=== PATIENT | female | born 1965 | race Caucasian/White ===

== ENCOUNTER 2018-05-27 21:14 | Emergency (ER) | payer OTHER ==
--- OUTSIDE RECORDS SUMMARY | 2018-05-27 21:18 | XMS REPORT | Continuity of Care Document ---
:1965 External Reference #:[id number] Author Name Chelsey Spencer Care Team Providers Name Role Phone Genesis Little RPA-C Care Team Information Die Engraver Unavailable Genesis Little RPA-C Primary Care Physician Unavailable Payers Type Date Identification Numbers Payment Provider Subscriber Policy Number: [id number] [facility] Eunice Godinez PayID: [id number] [address] [place] [address] Advance Directives Description No Information Available Problems Description No Information Family History Description No Information Available Social History Type Date Description Comments Sex Unknown Smoke-Free Home is smoke-free Pets 2 cats Recreational Drug Use Regularly uses herbal supplements Allergies, Adverse Reactions, Alerts Description No Known Drug Allergies Medications Medication Date Status Form Strength Qnty SIG Indications Ordering Provider Levocetirizine 00/00/ Active Tablets 5mg take 1 Unknown Dihydrochloride 0000 tablet by mouth once daily if needed for allergies Montelukast // Active Tablets 10mg take 1 Unknown Sodium 0000 tablet by mouth once daily Calcium 500+D / Active Tablets 500-400mg Unknown High Potency 0000 -Unit Biotin / Active Tablets 5000mcg Unknown 0000 Sub Vitamin D / Active Capsules [id number] Unknown (Ergocalciferol) 0000 Valtrex / Active Tablets 500mg 1 twice a Unknown 0000 day Lisinopril / Active Tablets 10mg Unknown 0000 Immunizations Description No Information Available Vital Signs Date Vital Result Comment 05/17/2018 9:42am BP Systolic 106 mmHg BP Diastolic 82 mmHg Height 63 inches 5'3" Weight 205.00 lb BMI (Body Mass Index) 36.3 kg/m2 Heart Rate 83 /min Respiratory Rate 16 /min Body Temperature 98.2 F O2 % BldC Oximetry 98 % Results Description No Information Available Procedures Description No Information Available Encounters Description No Information Available Plan of Treatment No Information Available
[2018-05-27 21:36] VITALS: BP 145/100
[2018-05-27] MEDS ORDERED: predniSONE TAB* 20 MG PO ONE (22:06)
[2018-05-27] MEDS ORDERED: Cephalexin CAP* 500 MG PO ONE (22:07)
--- NOTE | 2018-05-27 22:15 | UC ---
Skin Complaint HPI - HPI Summary HPI Summary: 53-year-old woman comes in with chief complaint of swollen left eyelid. This started a couple of hours ago. Right eyelid was also starting to swell. She took Benadryl and the swelling went down the right eyelid. The swelling left eyelids progressed some but still standing on the left eyelid. It is not itchy it is not painful there is no drainage. No change in vision no upper respiratory tract infection symptoms. Over the last several weeks to months patient's been having intermittent episodes of rash is primarily hives or swelling. She has at least one episode of swelling of the lips. Patient is undergoing a workup and evaluation with her primary care doctor for these hives and swelling. Patient is on lisinopril. Patient denies any difficulty breathing or shortness of breath. - History of Current Complaint Chief Complaint: UCEye Time Seen by Provider: 05/27/18 21:35 Stated Complaint: EYE IRRITATION Hx Last Menstrual Period: no period - cervical ablation Pain Intensity: 1 - Allergy/Home Medications Allergies/Adverse Reactions: Allergies Allergy/AdvReac Type Severity Reaction Status Date / Time SEASONAL ENVIRONMENTAL Allergy Unknown Uncoded 05/27/18 21:20 ALLERGIES Reaction Details Home Medications: Home Medications Aspirin/Acetaminophen/Caffeine [Excedrin Extra Strength Caplet] 1 each PO ONCE 05/27/18 [History Confirmed 05/27/18] Loratadine 10 mg PO DAILY 05/27/18 [History Confirmed 05/27/18] diphenhydrAMINE HCl [Benadryl Allergy 25 MG CAP] 50 mg PO ONCE 05/27/18 [ History Confirmed 05/27/18] PMH/Surg Hx/FS Hx/Imm Hx Previously Healthy: Yes Cardiovascular History: Hypertension - Surgical History Surgical History: Yes Surgery Procedure, Year, and Place: 1993 c section - [facility]. 1996 c section with tubal ligation bilateral, [facility]. cervical ablation. BENIGN CYSTS REMOVED FROM BACK - Family History Known Family History: Positive: None - Social History Alcohol Use: None Substance Use Type: Marijuana Substance Use Comment - Amount & Last Used: daily Smoking Status (MU): Never Smoked Tobacco - Immunization History Most Recent Tetanus Shot: [place] Review of Systems All Other Systems Reviewed And Are Negative: Yes Constitutional: Positive: Negative Skin: Positive: Other - SEE HPI Eyes: Positive: Negative ENT: Positive: Negative Respiratory: Positive: Negative Cardiovascular: Positive: Negative Gastrointestinal: Positive: Negative Motor: Positive: Negative Neurovascular: Positive: Negative Musculoskeletal: Positive: Negative Neurological: Positive: Negative Psychological: Positive: Negative Is Patient Immunocompromised?: No Physical Exam Triage Information Reviewed: Yes Appearance: Well-Appearing, No Pain Distress, Well-Nourished Vital Signs: Initial Vital Signs Temp 98.1 F 05/27/18 21:25 Pulse 69 05/27/18 21:25 Resp 18 05/27/18 21:25 BP 145/100 05/27/18 21:25 Pulse Ox 98 05/27/18 21:25 Vital Signs Reviewed: Yes Eye Exam: Normal Eyes: Positive: Conjunctiva Clear, Other: - Left eyelid is swollen. There is no drainage no scleral injection.. Negative: Conjunctiva Inflamed, Discharge ENT: Positive: Pharynx normal, Uvula midline. Negative: Nasal drainage Neck exam: Normal Neck: Positive: Supple Respiratory: Positive: Lungs clear, Normal breath sounds, No respiratory distress Cardiovascular: Positive: RRR Musculoskeletal Exam: Normal Musculoskeletal: Positive: Strength Intact, ROM Intact Neurological Exam: Normal Neurological: Positive: Alert, Muscle Tone Normal Psychological Exam: Normal Psychological: Positive: Normal Response To Family, Age Appropriate Behavior Skin Exam: Normal Course/Dx - Course Course Of Treatment: The swelling of the eyelid appears to be angioedema. The patient had an episode of her life 1 some if she knew had periorbital cellulitis so she was nervous about that and wishes to be on antibiotics for that possibility. I prescribed Keflex for that although I do not believe periorbital cellulitis is the cause of this rash. Also does not appear to be stye there is no drainage. I am sending the patient home with a dose of prednisone to be used just in case the swelling spreads. I also recommended she stop the lisinopril as that can be a cause of angioedema. Follow-up with primary care doctor go to the emergency department if she worsens or has any questions or concerns. - Diagnoses Provider Diagnosis: Angioedema Discharge - Sign-Out/Discharge Documenting (check all that apply): Patient Departure All imaging exams completed and their final reports reviewed: No Studies - Discharge Plan Condition: Stable Disposition: HOME Prescriptions: Cephalexin CAP* [Keflex CAP*] 500 mg PO TID #29 cap predniSONE TAB* [Deltasone 20 MG TAB*] 40 mg PO DAILY PRN #8 tab PRN Reason: Rash Patient Education Materials: Angioedema (ED) Referrals: Mando Russo DO [Primary Care Provider] - Additional Instructions: FOLLOW UP WITH YOUR DOCTOR. STOP TAKING THE LISINOPRIL IT CAN CAUSE ANGIOEDEMA. GO TO THE EMERGENCY DEPARTMENT FOR ANY WORSENING OF YOUR CONDITION; DIFFICULTY SWALLOWING OR BREATHING OR QUESTIONS OR CONCERNS. - Billing Disposition and Condition Condition: STABLE Disposition: Home
[2018-05-30 13:02] LABS: EBV Capsid Ag IgG Ab Positive (Negative); EBV Capsid Ag IgM Ab Negative (Negative); Epstein-Barr Nuclear Antigen Positive (Negative)
--- NOTE | 2018-05-30 16:24 | UC ---
- Progress Note Progress Note: EBV titers from May 27, 2018 comes back positive for IgG and nuclear AG. Negative for IgM. This suggests past infection. Nursing to call patient and inform the patient of the results are consistent with a prior infection of Kacy-Damon. Course/Dx - Diagnoses Provider Diagnoses: Angioedema Discharge - Sign-Out/Discharge Documenting (check all that apply): Patient Departure All imaging exams completed and their final reports reviewed: No Studies - Discharge Plan Condition: Stable Disposition: HOME Prescriptions: Cephalexin CAP* [Keflex CAP*] 500 mg PO TID #29 cap predniSONE TAB* [Deltasone 20 MG TAB*] 40 mg PO DAILY PRN #8 tab PRN Reason: Rash Patient Education Materials: Angioedema (ED) Referrals: Mando Russo DO [Primary Care Provider] - Additional Instructions: FOLLOW UP WITH YOUR DOCTOR. STOP TAKING THE LISINOPRIL IT CAN CAUSE ANGIOEDEMA. GO TO THE EMERGENCY DEPARTMENT FOR ANY WORSENING OF YOUR CONDITION; DIFFICULTY SWALLOWING OR BREATHING OR QUESTIONS OR CONCERNS. - Billing Disposition and Condition Condition: STABLE Disposition: Home
== END 2018-05-27 22:44 | disposition home or self-care (01) ==
LOC: UCEAST 21:14
DX: T78.3XXA Angioneurotic edema, initial encounter (principal); I10 Essential (primary) hypertension; Z91.09 Other allergy status, other than to drugs and biological substances
CPT/HCPCS: 36415; 86308; 86664; 86665; 87651; 99212; A9270-GY; G0463; J7512

== ENCOUNTER 2018-07-25 05:32 | Day surgery (SDC) | payer OTHER ==
[~2018-07-25 05:32] MED LIST: Buffered Lidocaine 1% SYRIN* 1 ML/SYRINGE INTRADERM ONE
[2018-07-25] MEDS ORDERED: Famotidine IV* 10 MG/ML 2 ML (20 mg) IV ONE (06:00)
[2018-07-25] MEDS ORDERED: Scopolamine 1.5 mg* PATCH TRANSDERM SCH (06:00)
[2018-07-25] MEDS ORDERED: Lactated Ringers 1000 ML Bag* 1,000 ML IV SCH (06:00)
[2018-07-25] MEDS ORDERED: ceFAZolin 2 GM in NS PREMIX(*) 2 GM/100 ML BAG IVPB ONE (06:35)
[2018-07-25] MEDS ORDERED: Scopolamine 1.5 mg* PATCH ONE (06:35)
[2018-07-25] MEDS ORDERED: Famotidine IV* 10 MG/ML 2 ML (20 mg) ONE (06:35)
[2018-07-25] MEDS ORDERED: Bupivacaine 0.25% EPI 200,000* 30 ML SDV ONE (07:12)
[2018-07-25] MEDS ORDERED: fentaNYL* 50 MCG/ML 2 ML VIAL (100 MCG VIAL) ONE (07:29)
[2018-07-25] MEDS ORDERED: Midazolam* 1 MG/ML 5 ML VIAL (5 MG) ONE (07:29)
[2018-07-25] MEDS ORDERED: Rocuronium* 10 MG/ML VIAL ONE (07:29)
[2018-07-25] MEDS ORDERED: Dexamethasone IV* 4 MG/ML 1 ML (4 MG) ONE (08:00)
[2018-07-25] MEDS ORDERED: DiMENhydriNATE IV* 50 MG/ML VIAL ONE (08:00)
[2018-07-25] MEDS ORDERED: Ketorolac INJ* 30 MG/ML 1 ML VIAL ONE (08:00)
[2018-07-25] MEDS ORDERED: Ondansetron INJ* 2 MG/ML VIAL ONE (08:00)
[2018-07-25] MEDS ORDERED: Lidocaine 2% PF * 5 ML VIAL ONE (08:00)
[2018-07-25] MEDS ORDERED: Metoclopramide IV* 5 MG/ML 2 ML VIAL ONE (08:00)
[2018-07-25] MEDS ORDERED: Propofol* 10 MG/ML 20 ML BTL ONE (08:00)
[2018-07-25] MEDS ORDERED: Succinylcholine* 20 MG/ML 10 ML VIAL ONE (08:00)
[2018-07-25] MEDS ORDERED: Acetaminophen IV 1GM/100ML * 1,000 MG/100 ML VIAL IVPB ONE (08:39)
[2018-07-25] MEDS ORDERED: Naloxone* 0.4 MG/ML 1 ML VIAL IV PRN (08:39)
[2018-07-25] MEDS ORDERED: HYDROmorphone INJ1* 1 MG/ML SYRINGE IV PRN (08:39)
[2018-07-25] MEDS ORDERED: DiMENhydriNATE IV* 50 MG/ML VIAL IV PUSH PRN (08:39)
[2018-07-25] MEDS ORDERED: HYDROmorphone INJ1* 1 MG/ML SYRINGE ONE (09:12)
[2018-07-25] MEDS ORDERED: Bupivacaine 0.25% W/EPI* 10 ML SDV ONE (09:37)
[2018-07-25] MEDS ORDERED: Lidocaine 1% INJ* 10 MG/ML 30 ML SDV ONE (10:07)
[2018-07-25] MEDS ORDERED: Bupivacaine 0.5%* 50 ML VIAL ONE (10:07)
[2018-07-25] MEDS ORDERED: Acetaminophen IV 1GM/100ML * 100 ML ONE (10:36)
[2018-07-25 11:33] VITALS: BP 119/71
--- NOTE | 2018-07-25 22:42 | OP ---
DATE OF OPERATION: 07/25/18 [facility] DATE OF : 69 SURGEON: Huy Snyder MD. HOME OFFICE REPRESENTATIVE: Anna Morin NP. ANESTHESIOLOGIST: Dr. De. ANESTHESIA: General with local. PRE-OP DIAGNOSIS: Primary ventral hernia. POST-OP DIAGNOSIS: Primary ventral hernia, hernia is approximately 4 cm in diameter. OPERATIVE PROCEDURE: Laparoscopic intraperitoneal onlay mesh, repair of primary ventral hernia using the 4.[address] mesh with Echo PS Positioning System. ESTIMATED BLOOD LOSS: Minimal. SPECIMEN: Preperitoneal fat from hernia. WOUND CLASSIFICATION: I. COMPLICATIONS: None. DRAINS: None. DESCRIPTION OF PROCEDURE: Written informed consent was obtained. The abdomen was marked with indelible ink and preoperative antibiotics were administered. The patient was taken to the operating room and placed in the supine position. Sequential compression devices and a warming blanket were applied. General anesthesia was administered. A Graham catheter was inserted. The abdomen was prepped and draped in the usual sterile fashion. Time-out verification was completed. Initially, a small transverse incision was made in the left upper quadrant of the abdomen and the fascia was divided sharply and the peritoneal cavity was entered under direct vision. A 12 mm blunt port was inserted and the abdomen was insufflated to 15 mmHg. Under direct vision, a 5 mm port was placed in the left lateral abdominal wall and a second 5 mm port was placed in the right midline midway between the umbilicus and the pubis. There were no intraabdominal adhesions noted. There was no umbilical hernia. [place] between the umbilicus and the xiphoid process, however, was a fat- containing ventral hernia, which would be classified as an epigastric hernia. Patient had no prior abdominal surgery. The hernia fat, which would appear to be preperitoneal and involving the falciform ligament, was reduced using sharp and blunt dissection. I then proceeded to excise this preperitoneal fat that had herniated up through the abdominal wall and included some of the falciform ligament as we dissected this more superiorly in preparation for mesh placement. This portion was excised using the LigaSure device and removed from the abdominal cavity in an EndoCatch bag and sent for specimen. The hernia was then measured from the external abdominal wall approximately 3-1/ 2 to 4 cm in diameter. A circular 4.5 inch mesh was then placed in the abdominal cavity and using the Echo Positioning System, the inflation device was brought out through the center of the hernia and the mesh was positioned centrally over the hernia defect with generous overlap in all directions. I then used the CapSure device to tack the mesh to the anterior abdominal wall at 1 cm intervals circumferentially as well as some tacks that were placed towards the more medial aspects of the mesh. The inflation system was then deflated and then removed without difficulty. The mesh sat nicely. It should be noted that I had decreased the abdominal pressure to 12 mm while the mesh was placed and tacked into position. Hemostasis was assured. No other abnormalities were noted. All ports removed under direct vision of the camera. The 12 mm blunt port site was closed with a [id number] 0 Vicryl suture placed with the EndoCatch needle. Additional Marcaine was infiltrated. All three incisions were approximated with subcuticular 4-0 Vicryl suture. Steri- Strips were applied. The patient tolerated the procedure well and was taken to the recovery room in stable condition. [id number]/[facility] #: [id number] QUINN
== END 2018-07-25 12:04 | disposition home or self-care (01) ==
LOC: OR 05:32
PROVIDERS: ATTEND Surgery
DX: K43.9 Ventral hernia without obstruction or gangrene (principal); R03.0 Elevated blood-pressure reading, without diagnosis of hypertension; M19.90 Unspecified osteoarthritis, unspecified site
CPT/HCPCS: 88302; A9270-GY; C1781; J0330; J0690; J1100; J1170; J1240; J1885; J2250; J2405; J2704; J2765; J3010

== ENCOUNTER 2021-07-04 18:29 | Observation (INO) ==
[2021-07-04 20:54] LABS: ABS Eosinophils 0.1 10^3/ul (0-0.6); ABS Lymphocytes 2.1 10^3/ul (1.0-4.8); ABS Monocytes 0.7 10^3/ul (0-0.8); ABS Neutrophils 6.5 10^3/ul (1.5-7.7); Eosinophil % 0.8 %; Hematocrit 41 % (35-47); Hemoglobin 14.2 g/dL (12.0-16.0); Lymphocyte % 22.6 %; Mean Corpuscular HGB Conc 35 g/dL (31-36); Mean Corpuscular Hemoglobin 30 pg (27-31); Mean Corpuscular Volume 88 fL (80-97); Mean Platelet Volume 10.5 fL (7.4-10.4); Platelet Count 168 10^3/uL (150-450); Red Blood Count 4.71 10^6 /uL (3.70-4.87); Red Cell Distribution Width 14 % (10-15); White Blood Count 9.4 10^3/uL (3.5-10.8)
[2021-07-04 21:34] LABS: Albumin 4.7 g/dL (3.2-5.2); Albumin/Globulin Ratio 1.7 (1-3); C Reactive Protein 94.21 mg/L (<8.01); Globulin 2.7 g/dL (2-4); Potassium 3.8 mmol/L (3.5-5.0); Total Bilirubin 0.8 mg/dL (0.2-1.0); Total Protein 7.4 g/dL (6.4-8.9); eGFR CKD-EPI 70.3 (>60)
[2021-07-05] MEDS ORDERED: Iohexol 300 (CONTRAST) 10 ML SDV IV ONE (00:23)
[2021-07-05] MEDS ORDERED: NS 0.9% 1000 ml BAG 1,000 ML IV ONE (01:27)
[2021-07-05 02:06] LABS: Urine Appearance Cloudy; Urine Bilirubin Negative (Negative); Urine Blood Negative (Negative); Urine Color Yellow; Urine Glucose Negative (Negative); Urine Ketones Trace (Negative); Urine Nitrite Negative (Negative); Urine Protein Negative (Negative); Urine Specific Gravity 1.009 (1.002-1.030); Urine Urobilinogen Negative (Negative)
[2021-07-05] MEDS ORDERED: Piperacillin/Tazobac ADVAN 3.375 GM in NS 0.9% 100 ml BAG 100 ML IV ONE (02:11)
[2021-07-05] MEDS ORDERED: Ondansetron 4 mg VIAL 2 MG/ML 2 ml VIAL IV PRN (02:27)
[2021-07-05] MEDS ORDERED: HYDROmorphone 1 MG/1 ML SYRINGE IV SLOW PU PRN (02:27)
[2021-07-05] MEDS ORDERED: Acetaminophen IV 1 GM/100ML 100 ML IV PRN (02:30)
[2021-07-05] MEDS ORDERED: D5W 1/2 NS KCl 20 meq 1000 ml 1,000 ML IV SCH (03:00)
[2021-07-05] MEDS ORDERED: ZOSYN 3.375 GM Q8H per EXTENDED INFUSION IV SCH (06:30)
[2021-07-05] MEDS ORDERED: Piperacillin/Tazobactam VIAL 3.375 GM in NS 0.9% 100 ml BAG 100 ML IVPB SCH (06:30)
[2021-07-05] MEDS ORDERED: Piperacillin/Tazobac ADVAN 3.375 GM in NS 0.9% 100 ml BAG 100 ML IV SCH (08:00)
[2021-07-05] MEDS ORDERED: Bupivacaine 0.5% SDV PF 30ML VIAL ONE (10:11)
[2021-07-05] MEDS ORDERED: Lidocaine 1% w EPI 1:100,000 MDV 20 ML VIAL ONE (10:11)
[2021-07-05] MEDS ORDERED: fentaNYL 100 mcg/2 ml 50 MCG/ML VIAL ONE (10:38)
[2021-07-05] MEDS ORDERED: Midazolam 2 mg/2 ml VIAL 1 mg/ml 2 ml VIAL (2 mg) ONE (10:39)
[2021-07-05] MEDS ORDERED: Dexamethasone IV 4 MG/ML VIAL 1 ml VIAL ONE (11:04)
[2021-07-05] MEDS ORDERED: Metoclopramide 5 MG/ML VIAL (10 mg) ONE (11:04)
[2021-07-05] MEDS ORDERED: Propofol 10 MG/ML 20 ML BTL ONE (11:23)
[2021-07-05] MEDS ORDERED: Rocuronium 50 mg VIAL 10 mg/ml 5 ml VIAL (50 mg) ONE (11:23)
[2021-07-05] MEDS ORDERED: oxyCODONE/Acetamin 5/325 mg TAB PO PRN (11:56)
[2021-07-05] MEDS ORDERED: Acetaminophen IV 1 GM/100 ML BAG IV ONE (11:56)
[2021-07-05 12:50] VITALS: BP 117/65
== END 2021-07-05 12:00 | disposition home or self-care (01) ==
LOC: EDHOLD 18:29 → ED 18:29 → SSU 07-05 05:51
PROVIDERS: ADMIT Surgery; ATTEND Surgery